=== PATIENT | female | born 1975 | race Two or more races ===

== ENCOUNTER 2020-11-12 07:22 | Emergency (ER) | payer OTHER ==
[~2020-11-12] VITALS: Ht 157.5 cm; Wt 74.8 kg
[2020-11-12 07:31] VITALS: BP 127/88
[2020-11-12 08:13] LABS: Urine WBC None Seen /hpf (0 - 5)
[2020-11-12 08:21] LABS: Urine Bacteria NONE SEEN /hpf (None Seen); Urine Blood Negative /uL (Negative); Urine Specific Gravity 1.017 (1.001-1.035)
[2020-11-12] MEDS ORDERED: SODIUM CHLORIDE 0.9% 1,000 ML IV ONE ×2 (08:30)
== END 2020-11-12 09:00 | disposition left against medical advice (07) ==
LOC: ER 07:22
DX: K52.9 Noninfective gastroenteritis and colitis, unspecified (principal); E11.9 Type 2 diabetes mellitus without complications; Z88.9 Allergy status to unspecified drugs, medicaments and biological substances; Z90.710 Acquired absence of both cervix and uterus; Z98.890 Other specified postprocedural states
CPT/HCPCS: 81001